=== PATIENT | male | born 1965 | race Caucasian/White ===

== ENCOUNTER 2023-04-28 00:35 | Inpatient (IN) | payer MEDICAID ==
[~2023-04-28] VITALS: Ht 170.2 cm; Wt 79.8 kg
[2023-04-28] VITALS (7 sets, daily range): BP systolic 101; BP diastolic 57–64; PULSE 56–83; RESP 20–24; TEMP 97.6; O2SAT 96–99
[2023-04-28 03:03] LABS: BASOPHILS # (AUTO) 0.1 K/uL (0.00-0.22); BASOPHILS % (AUTO) 1.2 % (0.0-2.0); EOSINOPHILS # (AUTO) 0.1 K/uL (0-0.4); HEMATOCRIT 37.3 % (36-52); HEMOGLOBIN 12.7 g/dL (12.0-18.0); LYMPHOCYTES # (AUTO) 1.6 K/uL (2.0-11.5); LYMPHOCYTES % (AUTO) 23.4 % (20.5-51.1); MEAN CORPUSCULAR HEMOGLOBIN 32 pg (27-31); MEAN CORPUSCULAR HGB CONC 34 g/dL (33-37); MEAN CORPUSCULAR VOLUME 94.8 fL (80-94); MONOCYTES # (AUTO) 0.6 K/uL (0.8-1.0); MONOCYTES % (AUTO) 8.4 % (1.7-9.3); NEUTROPHILS # (AUTO) 4.6 K/uL (1.8-7.7); PLATELET COUNT (AUTO) 201 K/uL (140-450); RED BLOOD CELL COUNT(AUTO) 3.94 MIL/uL (4.20-6.10)
[2023-04-28 03:16] LABS: ALBUMIN 3.4 g/dL (3.4-5.0); ANION GAP 11.9 (8-16); CALCIUM 8.3 mg/dL (8.5-10.1); CARBON DIOXIDE 29.1 mmol/L (21-32); CREATININE 0.9 mg/dL (0.6-1.3); TOTAL BILIRUBIN 0.5 mg/dL (0.0-1.0); TOTAL PROTEIN, SERUM 6.3 g/dL (6.4-8.2)
[2023-04-28] MEDS ORDERED: NACL 0.9% 1,000 ML IV ONE (04:15)
[2023-04-28 04:58] LABS: APPEARANCE,URINE CLEAR (CLEAR); BILIRUBIN,URINE NEGATIVE (NEGATIVE); BLOOD, URINE NEGATIVE (NEGATIVE); COLOR,URINE YELLOW (YELLOW); LEUKOCYTE ESTERASE ,URINE NEGATIVE (NEGATIVE); NITRITE, URINE NEGATIVE (NEGATIVE); PROTEIN,URINE NEGATIVE (NEGATIVE); UGLUCOSE NEGATIVE (NEGATIVE); UROBILINOGEN,URINE 0.2 EU/dL (0.2 - 1)
[2023-04-28] MEDS ORDERED: ASPIRIN 81 MG TAB.CHEW PO ONE (05:10)
[2023-04-28] MEDS ORDERED: ONDANSETRON 4 MG/2 ML VIAL IVP PRN (06:25)
[2023-04-28] MEDS ORDERED: ALBUTEROL 0.083% 2.5 MG/3 ML NEBU INH PRN (06:25)
[2023-04-28] MEDS ORDERED: MORPHINE SULFATE 2 MG/ML SYR IVP PRN (06:25)
[2023-04-28] MEDS: NACL 0.9% 1,000 ML IV SCH ×2 (07:01→16:25)
[2023-04-28] MEDS ORDERED: TAMSULOSIN 0.4 MG CAP PO SCH (08:30)
[2023-04-28] MEDS ORDERED: ZOLPIDEM 10 MG TAB PO ONE (21:40)
[2023-04-28] MEDS ORDERED: LORazepam 1 MG TAB PO STA (21:53)
[2023-04-28] MEDS ORDERED: ZOLPIDEM 5 MG TAB ONE (22:06)
[2023-04-28] MEDS ORDERED: LORazepam 1 MG TAB ONE (22:06)
== END 2023-04-28 22:30 | disposition left against medical advice (07) | DRG 282 ==
LOC: MED 00:35 → MTU 06:26
PROVIDERS: ADMIT Internal Medicine; ATTEND Internal Medicine
DX: K85.90 Acute pancreatitis without necrosis or infection, unspecified (principal); C34.90 Malignant neoplasm of unspecified part of unspecified bronchus or lung; K52.9 Noninfective gastroenteritis and colitis, unspecified; I45.10 Unspecified right bundle-branch block; D64.9 Anemia, unspecified; N13.2 Hydronephrosis with renal and ureteral calculous obstruction; R07.89 Other chest pain; Z53.29 Procedure and treatment not carried out because of patient's decision for other reasons
CPT/HCPCS: 36415; 71045; 73620; 80053; 81003; 82150; 83690; 83880; 84484; 85025; 85379; 93005; 96360; 99285